=== PATIENT | female | born 1995 | race Caucasian/White ===

== ENCOUNTER 2017-09-15 17:59 | Emergency (ER) | payer OTHER ==
[2017-09-15 18:46] LABS: BASOPHILS 0.9 % (0-2); EOSINOPHILS 1.5 % (0-7); HEMATOCRIT 40.3 % (36.0-48.0); HEMOGLOBIN 13.6 g/dL (12-16); IMMATURE GRANULOCYTES 0.4 % (0-5); LYMPHOCYTES 17.9 % (15-50); MCH 25.7 pg (26.0-34.0); MCHC 33.7 g/dL (31.0-37.0); MCV 76.2 fL (80.0-100.0); MEAN PLATELET VOLUME 10.9 fL (7.4-10.4); MONOCYTES 6.3 % (2-11); PLATELET COUNT 262 10x3/uL (130-400); RBC 5.29 10x6/uL (4.00-5.40); RDW 14.9 % (11.5-14.5); WBC 14.9 10x3/uL (4.8-10.8)
[2017-09-15 18:49] LABS: APPEARANCE CLEAR (CLEAR); BILIRUBIN NEGATIVE (NEGATIVE); COLOR YELLOW (YELLOW); GLUCOSE 1000 mg/dL (NEGATIVE); KETONE SMALL mg/dL (NEGATIVE); NITRITE NEGATIVE (NEGATIVE); PROTEIN NEGATIVE (NEGATIVE); SPECIFIC GRAVITY 1.015 (1.005-1.020); UROBILINOGEN NORMAL (NORMAL)
[2017-09-15 19:11] LABS: BILIRUBIN - TOTAL 0.45 mg/dL (0.2-1.3); CALCIUM 9.7 mg/dL (8.5-10.1); CARBON DIOXIDE 23.9 mmol/L (21.0-32.0); POTASSIUM - SERUM 3.9 mmol/L (3.5-5.1); PROTEIN - SERUM 8.3 g/dL (6.4-8.2)
== END 2017-09-15 21:15 | disposition home or self-care (01) ==
LOC: D.ER 17:59
PROVIDERS: Emergency Medicine
DX: E11.65 Type 2 diabetes mellitus with hyperglycemia (principal)

== ENCOUNTER → 2017-10-07 11:53 | Outpatient (CLI) | payer OTHER ==
[2017-10-07 15:25] LABS: APPEARANCE - CSF CLEAR; RBC - CSF 0 cmm (0-0)
== END | disposition home or self-care (01) ==
LOC: D.RAD 11:53
PROVIDERS: Family Medicine
DX: H47.11 Papilledema associated with increased intracranial pressure (principal)

== ENCOUNTER 2019-10-14 17:36 | Emergency (ER) | payer SELFPAY ==
[~2019-10-14] VITALS: Ht 180.3 cm; Wt 95.5 kg
[2019-10-14 17:43] VITALS: Ht 180.3 cm; Wt 95.5 kg
[2019-10-14 18:33] LABS: BILIRUBIN NEGATIVE (NEGATIVE); GLUCOSE NEGATIVE (NEGATIVE); KETONE NEGATIVE (NEGATIVE); NITRITE NEGATIVE (NEGATIVE); UROBILINOGEN NORMAL (NORMAL)
[2019-10-14] MEDS ORDERED: PROCTOFOAM15 GM RC (18:47)
[2019-10-14] MEDS ORDERED: ANUSOL-HC25 MG RC (18:47)
[2019-10-14 18:50] VITALS: BP 118/60
== END 2019-10-14 18:54 | disposition home or self-care (01) ==
LOC: D.ER 17:36
PROVIDERS: Emergency Medicine
DX: K64.9 Unspecified hemorrhoids (principal); K59.00 Constipation, unspecified; E11.9 Type 2 diabetes mellitus without complications